=== PATIENT | female | born 1985 | race Caucasian/White ===

== ENCOUNTER 2016-09-10 14:25 | Observation (INO) | payer SELFPAY ==
[2016-09-10 16:16] LABS: Urine Bilirubin Negative (Negative); Urine Blood Negative /uL (Negative); Urine Color Yellow (Yellow); Urine Glucose Normal (Normal); Urine Ketone Negative (Negative); Urine Mucus FEW (None Seen); Urine Nitrite Negative (Negative); Urine RBC 2 /hpf (0 - 4); Urine Squamous Epithelial Cell MOD /hpf (<5); Urine Urobilinogen Normal (Negative); Urine pH 6.5 (5.0-8.0)
[2016-09-10] MEDS ORDERED: TERBUTALINE SULFATE 1 MG/ML 1ML VIAL SC ONE ×2 (16:24→16:30)
== END 2016-09-10 17:10 | disposition home or self-care (01) | DRG 781 ==
LOC: LDRP 14:25
PROVIDERS: ADMIT Specialist; ATTEND Specialist
DX: O36.8120 Decreased fetal movements, second trimester, not applicable or unspecified (principal); O26.892 Other specified pregnancy related conditions, second trimester; N89.8 Other specified noninflammatory disorders of vagina; Z3A.25 25 weeks gestation of pregnancy
CPT/HCPCS: 59025; 81001; 81002; 96372; G0378; J3105

== ENCOUNTER 2016-11-04 10:42 | Observation (INO) | payer SELFPAY ==
[~2016-11-04] VITALS: Ht 162.6 cm; Wt 89.8 kg
[2016-11-04] MEDS ORDERED: PREN-96 PO (11:10)
[2016-11-04] MEDS ORDERED: TERBUTALINE SULFATE 1 MG/ML 1ML VIAL SC SCH (11:30)
== END 2016-11-04 12:30 | disposition home or self-care (01) | DRG 781 ==
LOC: LDRP 10:42
PROVIDERS: ADMIT Obstetrics & Gynecology; ATTEND Obstetrics & Gynecology
DX: O36.8130 Decreased fetal movements, third trimester, not applicable or unspecified (principal); O26.893 Other specified pregnancy related conditions, third trimester; R10.9 Unspecified abdominal pain; Z3A.33 33 weeks gestation of pregnancy
CPT/HCPCS: 59025; 81002; 96372; G0378; J3105

== ENCOUNTER 2016-11-26 00:16 | Inpatient (IN) | payer MEDICAID, OTHER ==
[~2016-11-26] VITALS: Ht 162.6 cm; Wt 88.9 kg
[~2016-11-26 00:16] MED LIST: PREN-96 PO
[2016-11-26] MEDS ORDERED: LACT. RINGERS/OXYTOCIN 20UNITS 1,000 ML IV SCH (00:52)
[2016-11-26] MEDS ORDERED: LACTATED RINGER'S 1,000 ML IV SCH (00:52)
[2016-11-26] MEDS ORDERED: PENICILLIN G POT 5MIL/D5 50ML 50 ML IV ONE (01:00)
[2016-11-26] MEDS ORDERED: CARBOPROST TROMETHAMINE 250 MCG/1ML VIAL IM PRN (01:00)
[2016-11-26] MEDS ORDERED: LIDOCAINE 2%HCL (LOCAL ANESTH.) INJ 20ML MDV IJ ONE (01:00)
[2016-11-26] MEDS ORDERED: PROMETHAZINE HCL 25 MG/ML 1ML IV PRN (01:00)
[2016-11-26] MEDS ORDERED: METHYLERGONOVINE MALEATE 0.2 MG/ML AMP IM PRN (01:00)
[2016-11-26] MEDS ORDERED: DERMOPLAST 60ML BOTTLE TOP PRN (01:00)
[2016-11-26] MEDS ORDERED: NALBUPHINE HCL 10 MG/1ml INJECTION IV PRN (01:00)
[2016-11-26] MEDS ORDERED: WITCH HAZEL-GLYCERIN PAD TOP PRN (01:00)
[2016-11-26] MEDS ORDERED: PHISODERM TOP SOLN 240ML BTL TOP PRN (01:00)
[2016-11-26 01:45] LABS: DEFINITIVE VIEW TRANSMISSION
[2016-11-26 02:07] LABS: Basophils # (auto) 0 uL; Basophils % (auto) 0.1 % (0.0-2.0); Eosinophils # (auto) 0.2 uL; Eosinophils % (auto) 1.4 % (0.0-7.0); Hematocrit 34.5 % (36.0-46.0); Hemoglobin 10.6 g/dL (12.2-16.2); Lymphocytes # (auto) 2.3 uL; Lymphocytes % (auto) 19.4 % (10.0-50.0); Mean Corpuscular Hemoglobin 26.8 pg (28.0-32.0); Mean Corpuscular Hgb Conc. 30.5 g/dL (32.0-36.0); Mean Corpuscular Volume 87.7 fL (80.0-100.0); Mean Platelet Volume 9.7 fL (7.4-10.4); Monocytes # (auto) 0.8 uL; Monocytes % (auto) 7.1 % (0.0-12.0); Neutrophils # (auto) 8.4 uL; Platelet Count (auto) 237 10^3/uL (140-450); Red Cell Distribution Width 14.2 % (11.6-16.0); White Blood Cell 11.7 10^3/uL (4.4-10.8)
[2016-11-26 02:14] LABS: Urine Bilirubin Negative (Negative); Urine Color Yellow (Yellow); Urine Glucose Normal (Normal); Urine Ketone Negative (Negative); Urine Nitrite Negative (Negative); Urine RBC 17 /hpf (0 - 4); Urine Squamous Epithelial Cell FEW /hpf (<5); Urine Urobilinogen Normal (Negative)
[2016-11-26 02:16] LABS: Albumin 2.4 g/dL (3.4-5.0); BUN/Creatinine Ratio 5.6; Calcium 8.7 mg/dL (8.5-10.1); Potassium 3.8 mmol/L (3.5-5.1)
[2016-11-26 02:18] LABS: Bilirubin, Total 0.2 mg/dL (0.2-1.0); Total Protein 6.5 g/dL (6.4-8.2)
[2016-11-26 02:30] LABS: Urine Blood 2+ /uL (Negative)
[2016-11-26 02:31] LABS: INR 0.93 (0.9-1.15); Prothrombin Time 9.6 sec (9.37-12.3)
[2016-11-26] MEDS ORDERED: fentaNYL W ROPIVACAINE 150 ML EPI SCH ×2 (04:45→07:00)
[2016-11-26] MEDS ORDERED: LIDOCAINE HCL 2 %PF INJ 10ML AMP IJ ONE (04:45)
[2016-11-26] MEDS ORDERED: ePHEDrine SULFATE 50 MG/ML AMP IV ONE ×2 (04:45→07:00)
[2016-11-26] MEDS ORDERED: fentaNYL CITRATE 100 MCG/2 ML VL IV ONE (04:45)
[2016-11-26] MEDS ORDERED: PENICILLIN G POTASSIUM 2,500,000 UNITS in D5W 5% 50 ML IV SCH (05:00)
[2016-11-26] MEDS ORDERED: NALOXONE HCL 0.4 MG/ML VIAL IV ONE (07:00)
[2016-11-26] MEDS ORDERED: LIDOCAINE 2%HCL (LOCAL ANESTH.) INJ 20ML MDV ONE (10:41)
[2016-11-26] MEDS: ACETAMINOPHEN 325 MG TAB PO PRN (13:36)
[2016-11-26 13:38] VITALS: BP 121/64
[2016-11-26 14:41] VITALS: BP 122/62
[2016-11-26 15:52] VITALS: BP 124/72
[2016-11-26 19:33] VITALS: BP 121/74
[2016-11-26] MEDS: IBUPROFEN 600 MG TAB PO PRN (22:05)
[2016-11-27] VITALS (7 sets, daily range): BP systolic 104–118; BP diastolic 63–73
[2016-11-27] MEDS: DOCUSATE CALCIUM 240 MG CAP PO SCH (09:41)
[2016-11-27] MEDS: ACETAMINOPHEN 325 MG TAB PO PRN (14:01)
[2016-11-27] MEDS: IBUPROFEN 600 MG TAB PO PRN (23:38)
[2016-11-28 03:30] VITALS: BP 122/74
[2016-11-28] MEDS: IBUPROFEN 600 MG TAB PO PRN (07:44)
[2016-11-28 08:00] VITALS: BP 115/72
[2016-11-28] MEDS: DOCUSATE CALCIUM 240 MG CAP PO SCH ×2 (10:00→10:38)
== END 2016-11-28 11:22 | disposition home or self-care (01) | DRG 775 ==
LOC: LDRP 00:16 → OBSVTOIN 00:16 → LDRP 00:54
PROVIDERS: ADMIT Specialist; ATTEND Specialist
PROC: 10D07Z6 Extraction of Products of Conception, Vacuum, Via Natural or Artificial Opening (ICD-10-PCS; principal; 2016-11-26)
PROC: 0W8NXZZ Division of Female Perineum, External Approach (ICD-10-PCS; 2016-11-26)
PROC: 00HU33Z Insertion of Infusion Device into Spinal Canal, Percutaneous Approach (ICD-10-PCS; 2016-11-26)
PROC: 3E0R3CZ (ICD-10-PCS; 2016-11-26)
PROC: 3E033VJ Introduction of Other Hormone into Peripheral Vein, Percutaneous Approach (ICD-10-PCS; 2016-11-26)
DX: O80 Encounter for full-term uncomplicated delivery (principal); Z37.0 Single live birth; Z3A.36 36 weeks gestation of pregnancy
CPT/HCPCS: 36415; 59025; 59409; 62282; 80053; 81001; 81002; 85025; 85610; 85730; 86850; 86900; 86901; 94762; 96365; 96366; 96374; G0434; J2590; J3010; J7060

== ENCOUNTER 2017-05-30 06:49 | Emergency (ER) | payer MEDICAID ==
[~2017-05-30] VITALS: Ht 162.6 cm; Wt 79.4 kg
[2017-05-30 07:28] LABS: Urine Bilirubin Negative (Negative); Urine Blood 2+ /uL (Negative); Urine Color Yellow (Yellow); Urine Glucose Normal (Normal); Urine Ketone Negative (Negative); Urine Mucus FEW (None Seen); Urine Nitrite Negative (Negative); Urine RBC 5 /hpf (0 - 4); Urine Squamous Epithelial Cell MOD /hpf (<5); Urine Urobilinogen Normal (Negative)
[2017-05-30 08:01] LABS: Basophils # (auto) 0 uL; Basophils % (auto) 0.4 % (0.0-2.0); Eosinophils # (auto) 0.2 uL; Eosinophils % (auto) 1.5 % (0.0-7.0); Hematocrit 38.9 % (36.0-46.0); Hemoglobin 12.7 g/dL (12.2-16.2); Lymphocytes % (auto) 20.5 % (10.0-50.0); Mean Corpuscular Hemoglobin 27.1 pg (28.0-32.0); Mean Corpuscular Hgb Conc. 32.7 g/dL (32.0-36.0); Mean Platelet Volume 9.1 fL (6.9-10.8); Monocytes # (auto) 0.5 uL; Monocytes % (auto) 5.4 % (0.0-12.0); Neutrophils # (auto) 7.2 uL; Neutrophils % (auto) 72.2 % (37.0-80.0); Platelet Count (auto) 320 10^3/uL (140-450); Red Cell Distribution Width 14.6 % (11.8-14.3)
[2017-05-30 08:17] LABS: Albumin 3.7 g/dL (3.4-5.0); BUN/Creatinine Ratio 5.9; Bilirubin, Total 0.4 mg/dL (0.2-1.0); Calcium 8.4 mg/dL (8.5-10.1); INR 0.95 (0.9-1.15); Partial Thromboplastin Time 28.9 sec (22.64-33.71); Potassium 3.7 mmol/L (3.5-5.1); Prothrombin Time 10.4 sec (9.37-12.3); Total Protein 7.3 g/dL (6.4-8.2)
[2017-05-30 11:20] VITALS: BP 132/78
== END 2017-05-30 11:37 | disposition home or self-care (01) ==
LOC: ER 06:49
DX: O23.41 Unspecified infection of urinary tract in pregnancy, first trimester (principal); Z3A.08 8 weeks gestation of pregnancy
CPT/HCPCS: 36415; 76801; 76817; 80053; 81001; 81025; 84702; 85025; 85610; 85730; 86850; 86900; 86901

== ENCOUNTER 2018-12-05 22:27 | Observation (INO) | payer MEDICAID ==
[~2018-12-05] VITALS: Ht 165.1 cm; Wt 79.4 kg
[2018-12-05] MEDS ORDERED: TERBUTALINE SULFATE 1 MG/ML 1ML VIAL SC ONE (23:03)
[2018-12-05] MEDS ORDERED: LACTATED RINGER'S 1,000 ML IV ONE (23:07)
[2018-12-05] MEDS: TERBUTALINE SULFATE 1 MG/ML 1ML VIAL SC SCH ×3 (23:07→23:55)
[2018-12-05 23:41] LABS: Urine Bacteria MANY /hpf (None Seen); Urine Blood Negative /uL (Negative); Urine Specific Gravity 1.009 (1.001-1.035); Urine WBC 41 /hpf (0 - 5); Urine WBC Clumps PRESENT /hpf (None Seen)
== END 2018-12-06 00:36 | disposition home or self-care (01) | DRG 563 ==
LOC: LDRP 22:27
PROVIDERS: ADMIT Specialist; ATTEND Specialist
DX: O60.03 Preterm labor without delivery, third trimester (principal); O23.43 Unspecified infection of urinary tract in pregnancy, third trimester; Z3A.31 31 weeks gestation of pregnancy
CPT/HCPCS: 59025; 81001; 81002; 87086; 87088; 87186; 96372; G0378; J3105; 96365; 96366

== ENCOUNTER 2019-01-25 19:20 | Observation (INO) | payer MEDICAID ==
[~2019-01-25] VITALS: Ht 165.1 cm; Wt 91.6 kg
[2019-01-25] MEDS ORDERED: FERR1TAB36 PO (20:55)
== END 2019-01-25 20:25 | disposition home or self-care (01) | DRG 566 ==
LOC: LDRP 19:20
PROVIDERS: ADMIT Specialist; ATTEND Specialist
DX: O00.01 Abdominal pregnancy with intrauterine pregnancy (principal); Z3A.39 39 weeks gestation of pregnancy
CPT/HCPCS: 59025; 81002; G0378

== ENCOUNTER 2019-01-27 19:50 | Observation (INO) | payer MEDICAID ==
[~2019-01-27] VITALS: Ht 165.1 cm; Wt 91.6 kg
[~2019-01-27 19:50] MED LIST changes: +FERR1TAB36 PO
== END 2019-01-28 00:27 | disposition home or self-care (01) | DRG 566 ==
LOC: LDRP 19:50
PROVIDERS: ADMIT Specialist; ATTEND Specialist
DX: O62.9 Abnormality of forces of labor, unspecified (principal); Z3A.39 39 weeks gestation of pregnancy
CPT/HCPCS: 59025; 81002; G0378

== ENCOUNTER 2020-03-11 18:36 | Observation (INO) | payer MEDICAID | END 2020-03-11 20:10 | disposition home or self-care (01) | DRG 566 | LOC: LDRP 18:36 | PROVIDERS: ADMIT Specialist; ATTEND Specialist | DX: O24.419 Gestational diabetes mellitus in pregnancy, unspecified control (principal); Z3A.36 36 weeks gestation of pregnancy | CPT/HCPCS: 59025; 76818; 81002; 82948; 82962; G0378 ==

== ENCOUNTER 2020-03-15 19:00 | Observation (INO) | payer MEDICAID | END 2020-03-15 20:37 | disposition home or self-care (01) | DRG 566 | LOC: LDRP 19:00 | PROVIDERS: ADMIT Specialist; ATTEND Specialist | DX: O24.419 Gestational diabetes mellitus in pregnancy, unspecified control (principal); Z3A.37 37 weeks gestation of pregnancy | CPT/HCPCS: 59025; 76818; 81002; G0378 ==

== ENCOUNTER 2020-03-22 10:07 | Observation (INO) | payer MEDICAID | END 2020-03-22 20:15 | disposition home or self-care (01) | DRG 861 | LOC: LDRP 19:00 | PROVIDERS: ADMIT Specialist; ATTEND Specialist | DX: Z34.93 Encounter for supervision of normal pregnancy, unspecified, third trimester (principal); Z3A.38 38 weeks gestation of pregnancy | CPT/HCPCS: 59025; 76818; 81002; 82948; 82962; G0378 ==

== ENCOUNTER 2020-03-23 02:10 | Inpatient (IN) | payer MEDICAID ==
[~2020-03-23] VITALS: Ht 165.1 cm; Wt 92.5 kg
[2020-03-23] MEDS ORDERED: LACTATED RINGER'S 1,000 ML IV SCH ×2 (03:12)
[2020-03-23] MEDS ORDERED: LACT. RINGERS/OXYTOCIN 20UNITS 1,000 ML IV SCH ×2 (03:12→17:53)
[2020-03-23] MEDS ORDERED: LIDOCAINE 2%HCL (LOCAL ANESTH.) INJ 20ML MDV ID ONE (03:15)
[2020-03-23] MEDS ORDERED: METHYLERGONOVINE MALEATE 0.2 MG/ML AMP IM PRN (03:15)
[2020-03-23] MEDS ORDERED: WITCH HAZEL-GLYCERIN PAD TOP PRN (03:15)
[2020-03-23] MEDS ORDERED: PHISODERM TOP SOLN 240ML BTL TOP PRN (03:15)
[2020-03-23] MEDS ORDERED: DERMOPLAST 60ML BOTTLE TOP PRN (03:15)
[2020-03-23] MEDS ORDERED: ACCU-CHEK COMFORT CURVE STRIP VI SCH (03:15)
[2020-03-23] MEDS ORDERED: BUTORPHANOL TARTRATE 2 MG/1 ML VIAL IV PRN (03:15)
[2020-03-23 04:25] LABS: Basophils # (auto) 0 10 ^3/uL (0-0.2); Basophils % (auto) 0.3 % (0.0-2.0); Eosinophils # (auto) 0.1 10 ^3/uL (0-0.8); Eosinophils % (auto) 0.6 % (0.0-7.0); Hematocrit 29.6 % (36.0-46.0); Hemoglobin 9.7 g/dL (12.2-16.2); Lymphocytes # (auto) 2.1 10 ^3/uL (0.4-5.4); Lymphocytes % (auto) 22.8 % (10.0-50.0); Mean Corpuscular Hemoglobin 26.5 pg (28.0-32.0); Mean Corpuscular Hgb Conc. 32.7 g/dL (32.0-36.0); Monocytes # (auto) 0.6 10 ^3/uL (0-1.3); Monocytes % (auto) 6.5 % (0.0-12.0); Neutrophils # (auto) 6.3 10 ^3/uL (1.6-8.6); Neutrophils % (auto) 69.8 % (37.0-80.0); Nucleated Red Blood Cells % 0.1 %; Platelet Count (auto) 223 10^3/uL (140-450); Red Blood Cells 3.65 10^6/uL (4.0-5.20); White Blood Cell 9.1 10^3/uL (4.4-10.8)
[2020-03-23 04:32] LABS: Potassium 3.7 mmol/L (3.5-5.1)
[2020-03-23 04:41] LABS: Albumin 2.5 g/dL (3.4-5.0); BUN/Creatinine Ratio 7.8; Bilirubin, Total 0.3 mg/dL (0.2-1.0); Calcium 8.6 mg/dL (8.5-10.1); Total Protein 6.3 g/dL (6.4-8.2)
[2020-03-23 04:46] LABS: Urine Bacteria MOD /hpf (None Seen); Urine Blood 3+ /uL (Negative); Urine Mucus FEW (None Seen); Urine Specific Gravity 1.009 (1.001-1.035); Urine WBC 219 /hpf (0 - 5); Urine WBC Clumps PRESENT /hpf (None Seen)
[2020-03-23 04:51] LABS: Alcohol, Urine < 3.0 mg/dL (0-10); Amphetamine Screen, Urine NEGATIVE (NEGATIVE); Barbiturate Scree,Urine NEGATIVE (NEGATIVE); Benzodiazephine Screen, Urine NEGATIVE (NEGATIVE); Cannabinoid Screen, Urine NEGATIVE (NEGATIVE); Cocaine Screen, Urine NEGATIVE (NEGATIVE); Opiate Scree,Urine NEGATIVE (NEGATIVE); Phencyclidine Screen, Urine NEGATIVE (NEGATIVE)
[2020-03-23 05:22] LABS: INR 0.96 (0.9-1.15); Partial Thromboplastin Time 25.4 sec (23.64-32.05)
[2020-03-23] MEDS ORDERED: LACTATED RINGER'S 1,000 ML IV ONE (06:16)
[2020-03-23] MEDS ORDERED: ePHEDrine SULFATE 50 MG/ML AMP IV PRN (06:30)
[2020-03-23] MEDS ORDERED: fentaNYL CITRATE 100 MCG/2 ML VL IV ONE (06:30)
[2020-03-23] MEDS ORDERED: NALOXONE HCL 0.4 MG/ML VIAL IV PRN (06:30)
[2020-03-23] MEDS: LACTATED RINGER'S 1,000 ML IV SCH ×2 (07:06→09:02)
[2020-03-23] MEDS: ROPIVACAINE HCL 100 ML EPI SCH ×2 (07:07→15:14)
[2020-03-23] MEDS: LIDOCAINE HCL 2 %PF INJ 10ML AMP IJ PRN ×2 (07:08→07:57)
[2020-03-23] MEDS ORDERED: SODIUM CHLORIDE 0.9% 250 ML IUPC ONE (11:22)
[2020-03-23] MEDS ORDERED: SODIUM CHLORIDE 0.9% 1,000 ML IUPC SCH (11:22)
[2020-03-23] MEDS ORDERED: LACT. RINGERS/OXYTOCIN 20UNITS 500 ML IV ONE (16:53)
[2020-03-23 19:00] VITALS: BP 114/66
--- NOTE | 2020-03-23 19:00 | NUR ---
Ambulation: Patient OOB with standby assistance by RN. Patient ambulated to bathroom with steady gait. Patient able to void without difficulty. [facility] teaching provided with returned demonstration by patient. Clean gown provided and bed linen changed. Patient ambulated back to bed with steady gait and no distress noted.
--- NOTE | 2020-03-23 19:00 | NUR ---
QBL 195
[2020-03-23] MEDS: IBUPROFEN 600 MG TAB PO PRN (21:03)
[2020-03-23 23:00] VITALS: BP 98/57
[2020-03-24] MEDS: IBUPROFEN 600 MG TAB PO PRN ×4 (00:25→20:15)
[2020-03-24 03:00] VITALS: BP 111/69
[2020-03-24 06:16] LABS: RPR Non Reactive (Non Reactive); Rubella Antibodies, IgG 3.26 index (Immune >0.99)
[2020-03-24 07:00] VITALS: BP 114/73
[2020-03-24 10:30] VITALS: BP 97/55
[2020-03-24 15:00] VITALS: BP 102/55
[2020-03-24 19:00] VITALS: BP 102/63
[2020-03-24] MEDS ORDERED: TETANUS-DIPTH-ACEL PERTUSSIS 0.5ML SYR Tdap IM ONE (19:30)
[2020-03-24 23:00] VITALS: BP 110/67
[2020-03-25] MEDS: IBUPROFEN 600 MG TAB PO PRN (01:22)
[2020-03-25 03:00] VITALS: BP 106/63
[2020-03-25 07:18] VITALS: BP 98/57
[2020-03-25 10:30] VITALS: BP 103/60
--- NOTE | 2020-03-25 12:13 | NUR ---
Discharge: Discharge instructions given as ordered. Pt encouraged to follow up with [facility] as instructed. All questions and concerns addressed. Patient verbalized understanding. Medication reconciliation completed and copy given to patient. All required/requested vaccines given and copies of vaccinations given to patient. Patient encouraged to prepare to depart unit.
--- NOTE | 2020-03-25 12:52 | NUR ---
Discharge: Patient taken to vehicle ambulatory with all personal belongings, accompanied by staff and family member. No distress noted at time of departure, no adverse changes in status since initial assessment.
== END 2020-03-25 12:52 | disposition home or self-care (01) | DRG 560 ==
LOC: LDRP 02:10 → OBSVTOIN 02:24 → LDRP 03:09
PROVIDERS: ADMIT Specialist; ATTEND Specialist
PROC: 10E0XZZ Delivery of Products of Conception, External Approach (ICD-10-PCS; principal; 2020-03-23)
PROC: 10H07YZ Insertion of Other Device into Products of Conception, Via Natural or Artificial Opening (ICD-10-PCS; 2020-03-23)
PROC: 3E0234Z Introduction of Serum, Toxoid and Vaccine into Muscle, Percutaneous Approach (ICD-10-PCS; 2020-03-23)
PROC: 3E0R3BZ Introduction of Anesthetic Agent into Spinal Canal, Percutaneous Approach (ICD-10-PCS; 2020-03-23)
PROC: 00HU33Z Insertion of Infusion Device into Spinal Canal, Percutaneous Approach (ICD-10-PCS; 2020-03-23)
PROC: 0HQ9XZZ Repair Perineum Skin, External Approach (ICD-10-PCS; 2020-03-23)
DX: O70.0 First degree perineal laceration during delivery (principal); O24.420 Gestational diabetes mellitus in childbirth, diet controlled; Z20.828 Contact with and (suspected) exposure to other viral communicable diseases; Z37.0 Single live birth; Z3A.38 38 weeks gestation of pregnancy; Z23 Encounter for immunization
CPT/HCPCS: 36415; 59409; 62282; 80053; 80307; 81001; 82948; 82962; 84112; 85025; 85610; 85730; 86592; 86762; 86850; 86900; 86901; 90715; 96360; 96361; 96365; 96366; G0378; J2590

== ENCOUNTER 2021-05-19 02:01 | Inpatient (IN) | payer MEDICAID ==
[~2021-05-19] VITALS: Ht 165.1 cm; Wt 88.0 kg
[2021-05-19 03:10] LABS: Urine Bacteria FEW /hpf (None Seen); Urine Blood Negative /uL (Negative); Urine Mucus FEW (None Seen); Urine Specific Gravity 1.011 (1.001-1.035); Urine WBC 24 /hpf (0 - 5)
[2021-05-19 03:13] LABS: Amphetamine Screen, Urine NEGATIVE (NEGATIVE); Barbiturate Scree,Urine NEGATIVE (NEGATIVE); Benzodiazephine Screen, Urine NEGATIVE (NEGATIVE); Cannabinoid Screen, Urine NEGATIVE (NEGATIVE); Cocaine Screen, Urine NEGATIVE (NEGATIVE); Opiate Scree,Urine NEGATIVE (NEGATIVE); Phencyclidine Screen, Urine NEGATIVE (NEGATIVE)
[2021-05-19] MEDS ORDERED: BUTORPHANOL TARTRATE 2 MG/1 ML VIAL IV PRN ×2 (03:45)
[2021-05-19] MEDS ORDERED: WITCH HAZEL-GLYCERIN PAD TOP PRN (03:45)
[2021-05-19] MEDS ORDERED: PHISODERM TOP SOLN 240ML BTL TOP PRN (03:45)
[2021-05-19] MEDS ORDERED: DERMOPLAST 60ML BOTTLE TOP PRN (03:45)
[2021-05-19] MEDS ORDERED: PROMETHAZINE HCL 25 MG/ML 1ML IM PRN (03:45)
[2021-05-19] MEDS ORDERED: LACTATED RINGER'S 1,000 ML IV SCH (03:45)
[2021-05-19] MEDS ORDERED: LIDOCAINE 2%HCL (LOCAL ANESTH.) INJ 20ML MDV IJ PRN (03:45)
[2021-05-19] MEDS ORDERED: BETAMETHASONE ACET (30mg/5ml) 5ml Vial 6mg/ml IM ONE (04:15)
[2021-05-19] MEDS ORDERED: LACT. RINGERS/OXYTOCIN 20UNITS 500 ML IV ONE ×2 (04:30→05:00)
[2021-05-19 04:42] LABS: Basophils # (auto) 0 10 ^3/uL (0-0.2); Basophils % (auto) 0.2 % (0.0-2.0); Eosinophils # (auto) 0.1 10 ^3/uL (0-0.8); Lymphocytes # (auto) 2.8 10 ^3/uL (0.4-5.4); Lymphocytes % (auto) 24.9 % (10.0-50.0); Monocytes # (auto) 0.8 10 ^3/uL (0-1.3); Nucleated Red Blood Cells % 0.1 %
[2021-05-19 04:44] LABS: Eosinophils % (auto) 1.1 % (0.0-7.0); Hematocrit 30.1 % (36.0-46.0); Mean Corpuscular Hemoglobin 25.9 pg (28.0-32.0); Mean Corpuscular Hgb Conc. 33.1 g/dL (32.0-36.0); Mean Corpuscular Volume 78.2 fL (80.0-100.0); Monocytes % (auto) 7.1 % (0.0-12.0); Neutrophils # (auto) 7.4 10 ^3/uL (1.6-8.6); Neutrophils % (auto) 66.7 % (37.0-80.0); Red Blood Cells 3.85 10^6/uL (4.0-5.20); Red Cell Distribution Width 17.8 % (11.8-14.3); White Blood Cell 11.2 10^3/uL (4.4-10.8)
[2021-05-19] MEDS ORDERED: cefTRIAXone 1GM/50ML D5W 50 ML IV ONE (04:45)
[2021-05-19 04:59] LABS: INR 0.96 (0.9-1.15); Partial Thromboplastin Time 25.4 sec (23.6-33.0)
[2021-05-19 05:07] LABS: Albumin 2.3 g/dL (3.4-5.0); Calcium 8.5 mg/dL (8.5-10.1); Potassium 4.1 mmol/L (3.5-5.1)
[2021-05-19 05:09] LABS: BUN/Creatinine Ratio 7.5
[2021-05-19 05:11] LABS: Bilirubin, Total 0.4 mg/dL (0.2-1.0); Total Protein 6.2 g/dL (6.4-8.2)
[2021-05-19] MEDS ORDERED: METHYLERGONOVINE MALEATE 0.2 MG/ML AMP IM ONE ×2 (05:13→05:15)
[2021-05-19] MEDS ORDERED: miSOPROStol 50 MCG per PRE-CUT 1/2 TAB SL PRN (05:15)
[2021-05-19] MEDS ORDERED: miSOPROStol 50 MCG per PRE-CUT 1/2 TAB PR PRN (05:15)
[2021-05-19] MEDS ORDERED: miSOPROStol 100 mcg TAB ONE (06:01)
[2021-05-19] MEDS ORDERED: ACETAMINOPHEN 325 MG TAB PO PRN (08:00)
[2021-05-19] MEDS: IBUPROFEN 600 MG TAB PO PRN ×2 (08:29→18:29)
[2021-05-19 11:00] VITALS: BP 120/61
[2021-05-19 15:01] VITALS: BP 108/68
[2021-05-19 19:15] VITALS: BP 114/60
[2021-05-19 23:19] VITALS: BP 107/72
[2021-05-20] MEDS ORDERED: SIMETHICONE 80 MG CHEWABLE TABLET PO SCH (03:30)
[2021-05-20 03:45] VITALS: BP 109/72
[2021-05-20 06:06] LABS: RPR Non Reactive (Non Reactive)
[2021-05-20 06:34] VITALS: BP 101/67
== END 2021-05-20 09:01 | disposition home or self-care (01) | DRG 560 ==
LOC: LDRP 02:01 → OBSVTOIN 03:35 → LDRP 03:45
PROVIDERS: ADMIT Obstetrics & Gynecology; ATTEND Obstetrics & Gynecology
PROC: 10E0XZZ Delivery of Products of Conception, External Approach (ICD-10-PCS; principal; 2021-05-19)
DX: O60.14X0 Preterm labor third trimester with preterm delivery third trimester, not applicable or unspecified (principal); Z37.0 Single live birth; O75.3 Other infection during labor; O69.81X0 Labor and delivery complicated by cord around neck, without compression, not applicable or unspecified; O99.02 Anemia complicating childbirth; Z20.822 Contact with and (suspected) exposure to COVID-19; Z3A.37 37 weeks gestation of pregnancy; Z83.3 Family history of diabetes mellitus
CPT/HCPCS: 36415; 59025; 59409; 80053; 80307; 81001; 81002; 85025; 85610; 85730; 86592; 86850; 86900; 86901; 87426; 94760; 96360; 96361; 96365; 96366; 96372; 96374; G0378; J0696; J2590

== ENCOUNTER 2021-05-23 20:27 | Emergency (ER) | payer MEDICAID ==
[~2021-05-23] VITALS: Ht 165.1 cm; Wt 86.2 kg
[~2021-05-23 20:27] MED LIST changes: -FERR1TAB36 PO
[2021-05-23 23:06] LABS: Basophils # (auto) 0 10 ^3/uL (0-0.2); Mean Corpuscular Volume 78.6 fL (80.0-100.0); White Blood Cell 11.1 10^3/uL (4.4-10.8)
[2021-05-23 23:15] LABS: Basophils % (auto) 0.3 % (0.0-2.0); Eosinophils # (auto) 0.3 10 ^3/uL (0-0.8); Eosinophils % (auto) 2.6 % (0.0-7.0); Hematocrit 34.8 % (36.0-46.0); Hemoglobin 10.6 g/dL (12.2-16.2); Lymphocytes # (auto) 2.4 10 ^3/uL (0.4-5.4); Lymphocytes % (auto) 21.2 % (10.0-50.0); Mean Corpuscular Hgb Conc. 30.5 g/dL (32.0-36.0); Monocytes # (auto) 0.5 10 ^3/uL (0-1.3); Monocytes % (auto) 4.9 % (0.0-12.0); Neutrophils # (auto) 7.9 10 ^3/uL (1.6-8.6); Nucleated Red Blood Cells % 0.1 %; Red Blood Cells 4.43 10^6/uL (4.0-5.20); Red Cell Distribution Width 17.6 % (11.8-14.3)
[2021-05-23 23:31] LABS: Alanine Aminotransferase 81 U/L (13-56); Albumin 2.6 g/dL (3.4-5.0); Anion Gap 11 (5-15); Aspartate Aminotransferase 103 U/L (15-37); BUN/Creatinine Ratio 11.3; Blood Urea Nitrogen 8 mg/dL (7-18); Calcium 8.5 mg/dL (8.5-10.1); Carbon Dioxide 24 mmol/L (21-32); Chloride 104 mmol/L (98-107); GFR African American 121 mL/min; GFR Non-African American 100 mL/min; Glucose 101 mg/dL (74-106); Potassium 3.6 mmol/L (3.5-5.1); Sodium 139 mmol/L (136-145)
[2021-05-23 23:35] LABS: Alkaline Phosphatase 112 U/L (45-117); Bilirubin, Total 0.3 mg/dL (0.2-1.0)
[2021-05-23 23:49] VITALS: BP 140/94
== END 2021-05-24 01:59 | disposition home or self-care (01) ==
LOC: ER 20:28
DX: D64.9 Anemia, unspecified (principal); R42 Dizziness and giddiness; Z79.899 Other long term (current) drug therapy
CPT/HCPCS: 36415; 76856; 80053; 84484; 84702; 85025; 93005